=== PATIENT | female | born 1960 | race Caucasian/White ===

== ENCOUNTER 2019-04-21 12:33 | Emergency (ER) | payer BC ==
[~2019-04-21] VITALS: Ht 157.5 cm; Wt 64.4 kg
[~2019-04-21 12:33] MED LIST: ESCI20TA10 PO; LEVO88TA5 PO; LISI10TA2 PO
[2019-04-21 12:42] VITALS: BP 140/90
[2019-04-21 13:09] VITALS: BP 140/90
--- NOTE | 2019-04-21 13:11 | ER.PDOC ---
General Chief Complaint: Influenza Stated Complaint: COUGH,CONGESTION,FEVER,BODY ACHES Time seen by MD: 12:40 Source: patient History of Present Illness Initial Comments Patient states she woke today feeling achey and feverish with sore throat. States several of her grandchildren have been sick with flu and strep and she feels like she is coming down with something. Timing/Duration: gradual Severity: mild Associated Symptoms: fever/chills, sinus pain/drainage, sore throat, hoarseness, cough Allergies: Coded Allergies: No Known Allergies (Unverified , 01/17/13) Home Meds Reported Medications Lisinopril (LISINOPRIL) 10 Mg Tablet, 1 TAB PO DAILY, #90 TAB 3 Refills 09/26/14 Levothyroxine Sodium (LEVOTHYROXINE SODIUM) 88 Mcg Tablet, 1 TAB PO DAILY, #90 TAB 3 Refills 09/26/14 Constitutional: fever, malaise EENTM: nose congestion Respiratory: no symptoms reported Cardiovascular: no symptoms reported Gastrointestinal: no symptoms reported Genitourinary: no symptoms reported Musculoskeletal: no symptoms reported Skin: no symptoms reported Psychiatric/Neurological: no symptoms reported Endocrine: no symptoms reported Hematologic/Lymphatic: no symptoms reported All Other Systems: Reviewed and Negative Past Medical History Surgical History: no surgical history Social History Drug Use: none Physical Exam General Appearance: mild distress Eye: eyes nml inspection, PERRL, no nystagmus Ear: ear nml Nose: rhinorrhea, mucosal edema Throat: pharyngeal erythema, hoarse voice Neck: lymphadenopathy Respiratory: no resp.distress, breath sounds nml Abdomen: non-tender CVS: reg rate & rhythm, heart sounds nml Skin: color nml, no rash, warm/dry Extremities: non-tender, nml ROM, no pedal edema NEURO/PSYCH: oriented x 3 Results/Orders Results/Orders Orders - KAY CAPUTO CLASSIFIED AD TAKER Strep Screen (04/21/19 12:48) Influenza A&B (04/21/19 12:48) Vital Signs Date Time Temp Pulse Resp B/P (MAP) Pulse Ox O2 Delivery O2 Flow Rate FiO2 04/21/19 13:24 138/86 (103) 04/21/19 13:09 98.1 74 16 04/21/19 13:09 98.1 74 16 140/90 (107) 97 2/7/20 12:42 98.1 74 16 97 Laboratory Tests Test 04/21/19 12:53 Influenza Type A Antigen NEGATIVE (NEG) Influenza B Immunofluorescence NEGATIVE (NEG) Group A Streptococcus Screen NEGATIVE (NEGATIVE) Departure Time of Disposition: 13:46 Disposition: 01 HOME, SELF-CARE Impression: Primary Impression: Allergic rhinitis Condition: Stable Patient Instructions: Allergic Rhinitis Referrals: REYNALDO CONRAD MD (PCP) PRIMARY CARE PROVIDER Additional Instructions: Continue to alternate Tylenol and Motrin for fever and pain Follow up with your Primary Care Provider in the next 1-2 days If symptoms become worse return to the ER Duration or Time Spent with Pa: 20 min KAY CAPUTO NP Apr 21, 2019 13:11
[2019-04-21 13:24] VITALS: BP 138/86
== END 2019-04-21 13:50 | disposition home or self-care (01) ==
LOC: ER 12:33
DX: J30.9 Allergic rhinitis, unspecified (principal); Z79.899 Other long term (current) drug therapy
CPT/HCPCS: 87070; 87804; 87880; 99283